=== PATIENT | female | born 1960 | race Caucasian/White ===

== ENCOUNTER → 2021-12-12 13:58 | Outpatient (CLI) | payer OTHER, SELFPAY ==
--- NOTE | 2021-12-12 14:06 | DI.MG.S_ITS ---
BILATERAL DIGITAL SCREENING MAMMOGRAM 3D/2D WITH CAD: 12/12/2021 CLINICAL: Routine screening. Comparison is made to exams dated: 07/10/2020 mammogram and 01/11/2019 mammogram - outside facility. The tissue of both breasts is heterogeneously dense. This may lower the sensitivity of mammography. Current study was also evaluated with a Computer Aided Detection (CAD) system. There are benign calcifications in both breasts. No significant masses, calcifications, or other findings are seen in either breast. There has been no significant interval change. IMPRESSION: BENIGN There is no mammographic evidence of malignancy. A 1 year screening mammogram is recommended. This exam was interpreted at Station ID: [id number]. NOTE: For mammograms, a report in lay terms will be sent to the patient. Approximately 15% of breast malignancies will not be visualized mammographically. In the management of a palpable breast mass, a negative mammogram must not discourage biopsy of a clinically suspicious lesion. Electronically Signed By: Mulu madsen/steve:12/12/2021 15:17:38 letter sent: Normal Exam ACR BI-RADS Category 2: Benign Finding(s) 3342F
== END ==
DX: Z12.31 Encounter for screening mammogram for malignant neoplasm of breast (principal)
CPT/HCPCS: 77063; 77067

== ENCOUNTER → 2023-01-26 15:00 | Outpatient (CLI) | payer OTHER, SELFPAY ==
--- NOTE | 2023-01-26 | DI.MG.S_ITS ---
BILATERAL DIGITAL SCREENING MAMMOGRAM 3D/2D WITH CAD: 01/26/2023 CLINICAL: Routine screening. Comparison is made to exams dated: 12/12/2021 mammogram - , 07/10/2020 mammogram, and 01/11/2019 mammogram - outside facility. Both breasts are heterogeneously dense, which may obscure small masses (category c / 51-75% glandular tissue). Current study was also evaluated with a Computer Aided Detection (CAD) system. There are benign calcifications in both breasts. No significant masses, calcifications, or other findings are seen in either breast. There has been no significant interval change. IMPRESSION: BENIGN There is no mammographic evidence of malignancy. A 1 year screening mammogram is recommended. Based on the Tyrer Cuzick model (a risk assessment model) the patient's lifetime risk is 9.9% and her 10 year risk is 4.6%. According to the ACR, ACS, and NCCN guidelines, an annual breast MRI exam along with mammogram is recommended if the patient's lifetime risk is 20% or greater. This exam was interpreted at Station ID: [id number]. NOTE: For mammograms, a report in lay terms will be sent to the patient. Approximately 15% of breast malignancies will not be visualized mammographically. In the management of a palpable breast mass, a negative mammogram must not discourage biopsy of a clinically suspicious lesion. Electronically Signed By: Stu paez/steve:01/26/2023 21:46:46 letter sent: Normal Exam ACR BI-RADS Category 2: Benign Finding(s) 3342F
== END ==
PROVIDERS: PCP Registered Nurse; Referring Provider Registered Nurse; Visit Provider Registered Nurse
DX: Z12.31 Encounter for screening mammogram for malignant neoplasm of breast (principal)
CPT/HCPCS: 77063; 77067

== ENCOUNTER 2023-03-19 13:31 | Day surgery (SDC) | payer OTHER, SELFPAY ==
--- NOTE | 2023-03-19 | PATH_ITS ---
[facility] Accession Number: [id number] No. of containers..03 Tissue . 01 Material submitted: . PART A: gastrointestinal site - ANTRUM PART B: gastrointestinal site - GASTRIC BODY POLYPS PART C: esophagus, E-G Junction - GEJ . 01 Diagnosis: A. Stomach, Antrum, Biopsy: Acute erosive gastritis with reactive gastropathy. Negative for Helicobacter by immunohistochemistry. Negative for intestinal metaplasia. Negative for dysplasia and malignancy. . B. Stomach, Body Polyps: Fundic gland polyp. No evidence of Helicobacter organisms on H/E stain. Negative for intestinal metaplasia. Negative for dysplasia and malignancy. . C. Gastroesophageal Junction, Biopsy: Squamocolumnar junctional mucosa with no diagnostic abnormality. Negative for intestinal metaplasia. Negative for dysplasia and malignancy. . MRV 03/28/20231950 Local . 01 Electronically signed: . Kelly Batres MD, Pathologist NPI- [id number] . 01 Gross description: . Part A: ANTRUM: Received in formalin is 2 fragment(s) of lopez, soft tissue measuring 0.3 x 0.2 x 0.1 cm to 0.3 x 0.1 x 0.1 cm submitted entirely in 1 cassette(s) Part B: GASTRIC BODY POLYPS: Received in formalin is 1 fragment(s) of lopez, soft tissue measuring 0.2 x 0.1 x 0.1 cm submitted entirely in 1 cassette(s) Part C: GEJ: Received in formalin is 1 fragment(s) of lopez, soft tissue measuring 0.2 x 0.1 x 0.1 cm submitted entirely in 1 cassette(s) /AAY 03/20/2023 0253 Local . 01 Microscopic: . A. An immunohistochemical stain was performed to evaluate for Helicobacter organisms and is negative. The control stain showed appropriate reactivity. . C. An AB/PAS stain is performed to evaluate for intestinal metaplasia and is negative. The control stain showed appropriate reactivity. . . * This test was developed and its performance characteristics determined by [employer]. It has not been cleared or approved by the U.S. Food and Drug Administration. The FDA has determined that such clearance or approval is not necessary. This test is used for clinical purposes. It should not be regarded as investigational or for research. . 01 Pathologist provided ICD-10: K29.50 . 01 CPT . 141263, 518558, 795144, V29275, 871218 Specimen Comment: A courtesy copy of this report has been sent to [phone] Performed at: 01 [facility] [address] [place] [address], [place], [place] [id number] MD Brayan Patrick MD Phone: [phone]
[2023-03-19] MEDS: LACTATED RINGERS 1,000 ML 100 ML IV ×2 (13:41→15:26)
[2023-03-19 13:49] VITALS: BP 130/79; PULSE 84; RESP 16; TEMP 36.1; O2SAT 99; BMI 26.5
--- NOTE | 2023-03-19 15:08 | P.HP_ITS ---
History of Present Illness History of Present Illness Date Patient Seen: 03/19/23 Time Patient Seen: 15:09 Chief complaint: SDC Narrative: I reviewed my recent office note. No significant changes. She has a remote history of Barretts and reports for surveillance. History of gastric hyperplastic polyp. Reflux is well controlled. [facility] Medical History Barretts esophagus Reflux gastritis Social History Smoking Status: Never smoker alcohol intake: current Meds Home Medications and Allergies Home Medications Medication Instructions Recorded Confirmed Type levothyroxine 75 mcg tablet 75 mcg PO QAM 03/19/23 03/19/23 History omeprazole 20 mg capsule,delayed 20 mg PO DAILY 03/19/23 03/19/23 History release trazodone 100 mg tablet 100 mg PO ONCE PM PRN insomnia 03/19/23 03/19/23 History Allergies Allergy/AdvReac Type Severity Reaction Status Date / Time No Known Drug Allergies Allergy Verified 03/19/23 13:37 Review of Systems Review of Systems ROS: Yes All systems reviewed with the patient and are negative except as otherwise documented Exam Vital Signs (past 8 hours): - 03/19/23 13:49 Temperature 96.9 F L Pulse Rate 84 Respiratory Rate 16 Blood Pressure 130/79 Pulse Oximetry 99 Oxygen Delivery Method Room Air Oxygen Delivery Method Room Air Const General: cooperative HENMT Head: normal to inspection Eyes General: appearance normal, both eyes and all related structures Neck Neck: normal visual inspection Chest Chest: normal inspection of the chest Resp Effort & Inspection: normal respiratory effort Cardio Rate: regular rate GI Inspection: normal to inspection Skin General: no rashes or lesions noted Neuro General: patient alert and patient awake Extrem General: normal to inspection and no pedal edema Psych Appearance: grossly normal Assessment & Plan Assessment & Plan narrative: 62-year-old female with a history of GERD, possible Barretts, hyperplastic gastric polyp. Surveillance EGD is pursued today.
--- NOTE | 2023-03-19 16:14 | PM.PREOP ---
Pre-operative Note Interval Note History & Physical reviewed/Exam performed by Physician: Yes Changes to H&P: No ASA Class (for procedural sedation): II
--- NOTE | 2023-03-19 16:14 | PM.OP.EGD ---
Operative Date/Time/Diagnoses Date of procedure: 03/19/23 Time of procedure: 16:14 Pre-op diagnosis: History of Barretts, history of gastric hyperplastic polyp, GERD Post-op diagnosis: same Procedure & Clinicians Study performed: EGD with biopsies Same procedure as scheduled: Yes Indications: History of Barretts, history of gastric hyperplastic polyp, GERD Surgeon: Catalino Celis Procedure Notes SCOAP/Timeout: Done Procedure in detail: After the risks and benefits were explained, written and verbal informed consent was obtained. The patient was brought into the procedure room and placed into the left lateral decubitus position. Please see anesthesia notes for sedation details. The scope was introduced into the mouth through the bite block and advanced under direct visualization to the 2nd portion of the duodenum. The scope was slowly withdrawn carefully examining the mucosa for any defects or lesions. Retroflexed views were accomplished in the stomach. The stomach was decompressed, the scope was then removed from the patient who tolerated the procedure well. Sedation minutes: 12 Complications: none Impression: 1. Duodenum: No pathology appreciated from the bulb through to the 2nd portion. 2. Stomach: The patient had a couple of shallow superficial ulcers in the antrum. The larger of the 2 was perhaps 6 mm in greatest dimension. Biopsies were taken from both of these ulcer sites. Otherwise retroflexed views of the LES were unremarkable with the exception of a small sliding hiatal hernia. There was a diminutive gastric polyp that was sampled from the proximal stomach for histopathologic analysis. 3. Esophagus: The squamocolumnar junction generally correlated with the top of the gastric folds. The Z-line was variable but not necessarily irregular and there was no evidence of any active inflammation. GEJ was at roughly 36 cm from the incisors and the diaphragmatic pinchcock was at roughly 38 cm from the incisors. I did not visualize anything that suggested obvious Barretts. The GE junction however was sampled with biopsy forceps for histopathologic analysis. The remainder of the esophagus was unremarkable. Endoscopic diagnosis 1. Small hiatal hernia 2. Variable C-fbuw-gitozrgm 3. Small antral ulcers-biopsied Post-procedure Plan for aftercare: 1. Await histopathology. 2. Avoid nonsteroidal anti-inflammatory medications. 3. Continue omeprazole for now. 4. Should Helicobacter pylori be identified, it will need to be eradicated with standard triple therapy. Disposition: PACU
[2023-03-19 16:19] VITALS: BP 96/70; PULSE 74; RESP 16; TEMP 36.2; O2SAT 96
[2023-03-19 16:30] VITALS: BP 112/60; PULSE 74; RESP 16; O2SAT 98
[2023-03-19 16:31] VITALS: BP 112/77; PULSE 72; RESP 16; O2SAT 98
[2023-03-19 16:43] VITALS: BP 124/78; PULSE 78; RESP 16; O2SAT 98
== END 2023-03-19 16:54 | disposition home or self-care (01) ==
PROVIDERS: PCP Registered Nurse; Referring Provider Internal Medicine Gastroenterology; Visit Provider Internal Medicine Gastroenterology
PROC: 0DJ08ZZ Inspection of Upper Intestinal Tract, Via Natural or Artificial Opening Endoscopic (ICD-10-PCS; CPT 43235; principal; 2023-03-19 14:30)
DX: K21.9 Gastro-esophageal reflux disease without esophagitis (principal); Z87.19 Personal history of other diseases of the digestive system; K44.9 Diaphragmatic hernia without obstruction or gangrene; K29.50 Unspecified chronic gastritis without bleeding; K31.7 Polyp of stomach and duodenum
CPT/HCPCS: 43239; J2704

== ENCOUNTER → 2023-06-01 14:08 | Outpatient (CLI) | payer OTHER, SELFPAY ==
--- NOTE | 2023-06-01 | DI.RAD.S_ITS ---
Bone Density Report Name: RADHA SORIA Age: 63 Sex: Female Ethnicity: White Date of : 1960 Indication: postmenopausal; screening for osteoporosis; Referring Provider: HALEIGH FRAZIER Study: Bone densitometry was performed. Exam Date: June 01, 2023 Accession number: [id number] Bone Density: Region BMD T-score Z-score Classification AP Spine(L1-L4) 0.744 -2.8 -1.0 Osteoporosis Femoral Neck (Left) 0.677 -1.6 0.0 Osteopenia Total Hip (Left) 0.887 -0.5 0.8 Normal Femoral Neck (Right) 0.642 -1.9 -0.4 Osteopenia Total Hip (Right) 0.831 -0.9 0.3 Normal Total Hip Mean 0.859 -0.7 0.6 Normal World Health Organization criteria for BMD impression classify patients as: Normal (T-score at or above -1.0), Osteopenia (T-score between -1.0 and -2.5), or Osteoporosis (T-score at or below -2.5). 10-year Fracture Risk: FRAX not reported because: Some T-score for Spine Total or Hip Total or Femoral Neck at or below -2.5 Impression: The patient has osteoporosis, based on the Total Spine T-score. Discussion: INCREASED RISK OF FRACTURE. BONE DENSITY IS UNDESIRABLY LOW AT ONE OR MORE SKELETAL SITES, CONSISTENT WITH POSTMENOPAUSAL OSTEOPOROSIS. This patient's lowest T-score meets the World Health Organization's (WHO) criteria for osteoporosis at one or more sites (T-score -2.5 or below). In untreated patients, the risk of osteoporotic fracture increases approximately two-fold for each 1.0 SD decrease in T-score. Low bone density is not the only risk factor for fracture; also consider factors such as patient's age, frailty or poor health, risk of falling, risk of injury, previous osteoporotic fracture, family history of osteoporosis, cigarette smoking, low body weight, etc. Not everyone with low bone mineral density has osteoporosis; osteomalacia and other metabolic bone disorders should also be considered. Patients who have osteoporosis should be evaluated for specific diseases and conditions (secondary causes) that may cause or contribute to bone loss. The [place] [employer] Clinical Endocrinologists (AACE) and National Osteoporosis Foundation (NOF) recommend pharmacologic intervention for all postmenopausal women whose T-score is in this range. The patient should follow a healthful lifestyle (good nutrition with adequate calcium and vitamin D, and appropriate weight-bearing exercise). Follow-Up: Consider a repeat BMD and Vertebral Fracture Assessment (VFA) exam in 2 years or sooner if medically necessary, to reassess this patient's status. Reported by: BETH SILVA M.D. on 06/01/2023 2:40:00 PM.
== END ==
PROVIDERS: PCP Registered Nurse; Referring Provider Registered Nurse; Visit Provider Registered Nurse
DX: Z13.820 Encounter for screening for osteoporosis (principal); Z78.0 Asymptomatic menopausal state; M81.0 Age-related osteoporosis without current pathological fracture
CPT/HCPCS: 77080

== ENCOUNTER → 2023-11-29 11:03 | Outpatient (CLI) | payer OTHER, SELFPAY ==
[2023-11-29 11:45] LABS: Add Manual Diff / Slide Review NO; Basophils Absolute Auto 0 /uL (0-100); Basophils Percent Auto 0.7 % (0-2); Eosinophils Absolute Auto 100 /uL (0-450); Eosinophils Percent Auto 1.4 % (2-4); Hematocrit 40.8 % (36-46); Hemoglobin 13.8 g/dL (12.0-16.0); Lymphocytes Absolute Auto 1300 /uL (1100-4500); Lymphocytes Percent Auto 27.4 % (25-40); Mean Corpuscular HGB Conc 33.8 % (30-36); Mean Corpuscular Volume 91.6 fL (80-100); Monocytes Absolute Auto 400 /uL (0-900); Monocytes Percent Auto 8.6 % (3-14); Neutrophils Absolute Auto 3000 /uL (1500-7000); Neutrophils Percent Auto 61.9 % (50-75); Platelet Count 222 X10^3/uL (150-400); Red Blood Cell Count 4.45 X10^6/uL (4.0-5.2); Red Cell Distribution Width 13.4 % (11.6-14.8); White Blood Cell Count 4.9 X10^3/uL (4.5-11.0)
[2023-11-29 11:55] LABS: Hemoglobin A1C% w Est Avg Glu 5.2 % (4.0-6.0)
[2023-11-29 12:13] LABS: Albumin 4.6 g/dL (3.5-5.0); BUN Creatinine Ratio 21.5 (6-22); Blood Urea Nitrogen 17 mg/dL (7-17); Calcium 9.7 mg/dL (8.4-10.2); Carbon Dioxide 29 mmol/L (22-32); Chloride 106 mmol/L (98-107); Estimated Glomerular Filt Rate > 60 mL/min (>60); Glucose 91 mg/dL (80-110); HEMOLYSIS < 15 (0-50); Potassium 4.4 mmol/L (3.4-5.1); Sodium 139 mmol/L (137-145)
[2023-11-29 12:21] LABS: Prealbumin 34.5 mg/dL (17.6-36.0)
== END ==
PROVIDERS: PCP Registered Nurse; Referring Provider Orthopaedic Surgery Adult Reconstructive Orthopaedic Surgery; Visit Provider Orthopaedic Surgery Adult Reconstructive Orthopaedic Surgery
DX: Z01.818 Encounter for other preprocedural examination (principal); R77.0 Abnormality of albumin; E55.9 Vitamin D deficiency, unspecified; Z01.812 Encounter for preprocedural laboratory examination; R73.9 Hyperglycemia, unspecified
CPT/HCPCS: 36415; 80048; 82040; 82306; 83036; 84134; 85025; 93005; 93010

== ENCOUNTER → 2024-07-31 09:12 | Outpatient (CLI) | payer OTHER, SELFPAY ==
--- NOTE | 2024-07-31 09:14 | DI.US.S_ITS ---
LIMITED ULTRASOUND OF LEFT BREAST AND AXILLA: 07/31/2024 CLINICAL: Palpable left breast lump. Comparison is made to exams dated: 07/31/2024 mammogram, 01/26/2023 mammogram, 12/12/2021 mammogram - [facility], 07/10/2020 mammogram, and 01/11/2019 mammogram - outside facility. Color flow and real-time ultrasound of the left breast 12 o'clock, and axilla regions were performed. Herrera scale images of the real-time examination were reviewed. There is a 1.1 cm x 0.8 cm x 1.1 cm irregular mass in the left breast at 12 o'clock anterior depth 3.5 cm from the nipple. This irregular mass is hypoechoic with an echogenic boundary and posterior acoustic shadowing. This correlates as palpated, with mammography findings, and area of clinical concern. Color flow imaging demonstrates that there is vascularity present. No significant abnormalities were seen sonographically in the left axilla. IMPRESSION: SUSPICIOUS The 1.1 cm x 0.8 cm x 1.1 cm irregular mass in the left breast is suspicious of malignancy. An ultrasound guided biopsy is recommended. No sonographic abnormalities identified in the axilla. No axillary adenopathy. Findings and recommendations were discussed with the patient by Dr. Reyes via telephone during today's examination. This exam was interpreted at Station ID: [id number]. Electronically Signed By: Stu Reyes M.D. aty/:07/31/2024 10:56:17 letter sent: Biopsy Required ACR BI-RADS Category 4: Suspicious
--- NOTE | 2024-07-31 09:14 | DI.MG.S_ITS ---
BILATERAL DIGITAL DIAGNOSTIC MAMMOGRAM 3D/2D: 07/31/2024 CLINICAL: Left breast lump. Comparison is made to exams dated: 01/26/2023 mammogram, 12/12/2021 mammogram - [facility], and 07/10/2020 mammogram - outside facility. The breasts are heterogeneously dense, which may obscure small masses (category c / 51-75% glandular tissue). There is a possible new 1 cm focal asymmetry with an obscured and indistinct margin in the left breast at 1 o'clock anterior depth. This correlates as palpated, with area of clinical concern, and triangle skin marker. There is architectural distortion associated with the focal asymmetry. No other significant masses, calcifications, or other findings are seen in either breast. IMPRESSION: INCOMPLETE: NEED ADDITIONAL IMAGING EVALUATION The possible new 1 cm focal asymmetry in the left breast is indeterminate. An ultrasound is recommended for further evaluation and is scheduled to immediately follow this examination. Based on the Tyrer Cuzick model (a risk assessment model) the patient's lifetime risk is 9.1% and her 10 year risk is 4.6%. According to the ACR, ACS, and NCCN guidelines, an annual breast MRI exam along with mammogram is recommended if the patient's lifetime risk is 20% or greater. This exam was interpreted at Station ID: [id number]. NOTE: For mammograms, a report in lay terms will be sent to the patient. Approximately 15% of breast malignancies will not be visualized mammographically. In the management of a palpable breast mass, a negative mammogram must not discourage biopsy of a clinically suspicious lesion. Electronically Signed By: Stu Reyes M.D. aty/:07/31/2024 10:28:21 letter sent: Additional Imaging Needed ACR BI-RADS Category 0: Incomplete: Need Additional Imaging Evaluation
== END ==
PROVIDERS: PCP Registered Nurse; Referring Provider Registered Nurse; Visit Provider Registered Nurse
DX: N63.25 Unspecified lump in the left breast, overlapping quadrants (principal); R92.333 Mammographic heterogeneous density, bilateral breasts; R92.2 Inconclusive mammogram
CPT/HCPCS: 76642; 77066; G0279

== ENCOUNTER → 2024-08-22 08:27 | Outpatient (CLI) | payer OTHER, SELFPAY ==
--- NOTE | 2024-08-22 | PATH_ITS ---
[facility] Accession Number: [id number] . 01 Material submitted: . breast - LEFT BREAST 12:00, 3.5 CMFN MASS . 01 Diagnosis: A: LEFT BREAST, 12 O'CLOCK, 3.5 CM FROM NIPPLE, CORE BIOPSY: Invasive carcinoma with the following features: Histologic type: No special type (ductal). Histologic grade (Crandall histologic score): Intermediate (grade 2 [score 6 of 9]). -Tubular formation: Poor (score 3 of 3). -Nuclear grade: Intermediate (score 2 of 3). -Mitotic rate: Low (score 1 of 3) Largest invasive focus: 5 mm. Ductal carcinoma in situ (DCIS): Not identified. Lymphovascular invasion: Not identified. Associated calcifications: Present within tumor and benign tissue. Biomarkers: -ER: Positive (99%, strong). -GA: Positive (10%, moderate). -HER2 by IHC: Equivocal (score 2+, see comment). [facility] 08/26/2024 1512 Local . 01 Comment: Immunohistochemistry for COSTA-3 and e-cadherin are performed and are positive, supporting the above diagnosis. Biomarkers are also performed with results as reported above. FISH for HER2 overexpression has been ordered and the results will be reported in an addendumm . This case has also been reviewed by Dr. Crump, who agrees with the interpretation. . These results were discussed with Terra Vasquez APRN, on 08/26/2024 at 3:40 pm. . Technical Note: The immunohistochemical stains reported were performed with appropriately staining controls at [facility] ([address], [facility] [address]). This test was developed, and the performance characteristics were validated by [facility]. It has not been cleared or approved by the Food and Drug Administration. . 01 Electronically signed: . Brandi Vargas DO, Pathologist NPI- [id number] . 01 Gross description: . Received in formalin, labeled with two identifiers and left breast 12 o'clock 3.5 cm FN, are multiple yellow to lopez soft tissue fragments admixed with hemorrhagic material aggregating to 1.8 x 1.3 x 0.2 cm. Filtered, inked yellow, and submitted entirely in cassette A1. . The specimen was removed on 08/22/2024 at 10:10. Time in formalin not provided. Cold ischemic time cannot be calculated. Total fixation time is approximately 52 hours. ([id number]) /FRR 08/23/2024 1748 Local . 01 Pathologist provided ICD-10: C50.912 . 01 CPT . 674713, W94448, T89358, 890425 Performed at: [address] [facility], [place], [place] [id number] MD Brayan Patrick MD Phone: [phone]
--- NOTE | 2024-08-22 08:29 | DI.US.S_ITS ---
PROCEDURE: US BX BREAST PERC W VAC DEVICE COMPARISON: None. INDICATIONS: LEFT BREAST 12:00 3.5 CMFN MASS BIOPSY FINDINGS: After consulting with a patient and signing the consent. Ultrasound-guided percutaneous biopsy with vacuum device was accomplished with little difficulty. Five samples were obtained. A clip marker was deployed at the end of exam. The mammographic unit was not available for imaging at was in the process of being repaired. Patient will return for imaging of the left breast to localize the clip position. IMPRESSION: Successful left breast mass biopsy and clip placement under ultrasound guidance. Dictated by: Jose Parkinson M.D. on 08/22/2024 at 14:17 Approved by: Jose Parkinson M.D. on 08/22/2024 at 14:20
== END ==
PROVIDERS: PCP Registered Nurse; Referring Provider Registered Nurse; Visit Provider Registered Nurse
DX: N63.25 Unspecified lump in the left breast, overlapping quadrants (principal)
CPT/HCPCS: 19083